=== PATIENT | male | born 1945 | race Caucasian/White ===

== ENCOUNTER 2018-01-05 21:09 | Emergency (ER) | payer BC ==
[2018-01-05 22:11] LABS: BASO # 0.1 10^3/uL (0.0-0.2); BASO % 0.7 % (0.0-1.0); EOS % 0.1 % (0.0-3.0); HEMATOCRIT 47.5 % (42.0-52.0); IMMATURE GRANULOCYTE % 0.4 % (0-3.0); LYMPH # 1.3 10^3/uL (1.5-4.5); LYMPH % 12.2 % (24.0-44.0); MEAN CORPUSCULAR HEMOGLOBIN 30.9 pg (27.0-33.0); MEAN CORPUSCULAR HGB CONC 33.7 g/dl (32.0-36.5); MEAN CORPUSCULAR VOLUME 91.9 fl (80.0-96.0); MONO # 0.9 10^3/uL (0.0-0.8); MONO % 8.6 % (0.0-5.0); NEUTROPHILS # 8.1 10^3/uL (1.8-7.7); PLATELET COUNT, AUTOMATED 210 10^3/uL (150-450); RED BLOOD COUNT 5.17 10^6/uL (4.30-6.10); RED CELL DISTRIBUTION WIDTH 12.5 % (11.5-14.5); WHITE BLOOD COUNT 10.4 10^3/uL (4.0-10.0)
[2018-01-05 22:29] LABS: ALBUMIN 3.8 GM/DL (3.2-5.2); ALBUMIN/GLOBULIN RATIO 1.23 (1.00-1.93); ALKALINE PHOSPHATASE 110 U/L (45-117); ALT/SGPT 35 U/L (12-78); ANION GAP 10 MEQ/L (8-16); AST/SGOT 95 U/L (7-37); BILIRUBIN,DIRECT 0.2 MG/DL (0.0-0.2); BILIRUBIN,TOTAL 0.9 MG/DL (0.2-1.0); BLOOD UREA NITROGEN 26 MG/DL (7-18); CALCIUM LEVEL 8.7 MG/DL (8.8-10.2); CARBON DIOXIDE LEVEL 21 MEQ/L (21-32); CHLORIDE LEVEL 106 MEQ/L (98-107); CPK CREATINE PHOSPHOKINASE 494 U/L (39-308); CREATININE FOR GFR 1.56 MG/DL (0.70-1.30); GLOMERULAR FILTRATION RATE 46.9 (>42); GLUCOSE, FASTING 123 MG/DL (70-100); POTASSIUM SERUM 4.5 MEQ/L (3.5-5.1); SODIUM LEVEL 137 MEQ/L (136-145); TOTAL PROTEIN 6.9 GM/DL (6.4-8.2)
[2018-01-05 22:35] LABS: CK-MB VALUE MASS 87.1 NG/ML (<3.6); MB/CK RELATIVE INDEX 17.63 (< OR =4); NT-PRO BNP 8410 PG/ML (<125)
[2018-01-05 23:18] LABS: LACTIC ACID SEPSIS PROTOCOL 2.7 MMOL/L (0.4-2.0)
[2018-01-05 23:19] LABS: TROPONIN I 6.37 NG/ML (< 0.10)
[2018-01-05] MEDS: NS 1,000 ML IV (23:24)
[2018-01-05] MEDS ORDERED: PIPERACILLIN/TAZOBACTAM SOD 3.375 GM in D5W MINI-BAG PLUS 50 ML IV (23:30)
[2018-01-05] MEDS ORDERED: ONDANSETRON 4MG/2ML VIAL (J2405) IV (23:30)
[2018-01-05] MEDS ORDERED: VANCOMYCIN HCL 1,000 MG, VIAL MATE ADAPTER 1 EACH in D5W 250 ML IV (23:30)
[2018-01-06] MEDS: CLOPIDOGREL 300 MG TAB (PLAVIX) PO (00:07)
[2018-01-06] MEDS: HEPARIN DRIP 25,000 UNITS in APPROPRIATE DILUENT 1 EA IV (00:22)
[2018-01-06] MEDS: HEPARIN SOD (PORCINE) 5000 UNITS/ML VIAL IV (00:30)
[2018-01-06] MEDS: NICOTINE 14 MG/24 HR TRANSDERMAL TD (00:30)
[2018-01-06] MEDS ORDERED: LORazepam 1 MG TAB As Ordered (00:35)
[2018-01-06] MEDS: LORazepam 1 MG TAB PO (00:42)
== END 2018-01-06 00:45 | disposition short-term general hospital (02) ==
LOC: M ED 01-06 00:45
DX: I21.4 Non-ST elevation (NSTEMI) myocardial infarction (principal); Z79.82 Long term (current) use of aspirin; F17.210 Nicotine dependence, cigarettes, uncomplicated
CPT/HCPCS: 71045